=== PATIENT | male | born 1960 | race Caucasian/White ===

== ENCOUNTER 2022-06-19 09:07 | Emergency (ER) | payer BC ==
[2022-06-19 09:27] VITALS: BP 146/73
--- NOTE | 2022-06-19 10:42 | XRAY Report ---
PROCEDURE: Ribs w/PA Chest RT INDICATIONS: pain RIGHT chest TECHNIQUE: Two views of the right ribs were acquired, along with a single view chest. COMPARISON: None. FINDINGS: Surgical changes and devices: None. Bones and chest wall: No fractures or dislocations. No suspicious bony lesions. Overlying soft tis sues appear unremarkable. Lungs and pleura: No pleural effusions or pneumothorax. Lungs appear clear. Mediastinum: Mediastinal contours appear normal. Heart size is normal. IMPRESSION: No rib fracture or other abnormality to explain right sided chest pain. Reviewed by: Brock Cash MD on 06/19/2022 10:40 AM [facility] Approved by: Brock Cash MD on 06/19/2022 10:40 AM [facility] Station ID: [id number]
[2022-06-19] MEDS ORDERED: LIDOCAINE PATCH 5% TOP STA (12:04)
--- NOTE | 2022-06-19 12:15 | ED Physician Documentation ---
History of Present Illness - Stated complaint Stated Complaint: RIB PX, SOA - Chief complaint Chief Complaint: General - History obtained from History obtained from: Patient - History of Present Illness Pain level max: 7 Pain level now: 5 - Additonal information Additional information: Patient states that 2 days ago he was moving boxes in a house and developed right-sided rib pain after that. Worse with movement. Worse with palpation. Worse with deep breathing, coughing, sneezing. Nothing makes it better. Review of Systems Constitutional: denies: Fever, Chills Nose: denies: Rhinorrhea / runny nose Throat: denies: Sore throat Cardiac: denies: Chest pain / pressure Respiratory: denies: Cough GI: denies: Vomiting, Diarrhea Skin: denies: Rash Musculoskeletal: denies: Neck pain, Back pain Neurologic: denies: Headache PD PAST MEDICAL HISTORY - Past Medical History Past Medical History: Yes Cardiovascular: OR Neuro: CVA - Past Surgical History Past Surgical History: Yes - Present Medications Home Medications: Ambulatory Orders Medication Instructions Recorded Confirmed HYDROcod/ACETAM 5/325 [[place] 5/325] 1 - 2 ea PO Q6H PRN #14 tablet 06/19/22 Lidocaine Patch 5% [Lidoderm Patch] 1 patch TOP DAILY PRN #10 patch 06/19/22 - Allergies Allergies/Adverse Reactions: Allergies Allergy/AdvReac Type Severity Reaction Status Date / Time Iodinated Contrast Media Allergy Itching Verified 06/19/22 09:27 - Social History Does the pt smoke?: No Smoking Status: Never smoker Does the pt drink ETOH?: Yes Does the pt have substance abuse?: No - Immunizations Immunizations are current?: Yes PD ED PE NORMAL - Vitals Vital signs reviewed: Yes - General General: Alert and oriented X 3, No acute distress - HEENT HEENT: Moist mucous membranes - Neck Neck: Supple, no meningeal sign - Cardiac Cardiac: RRR - Respiratory Respiratory: No respiratory distress, Clear bilaterally - Abdomen Abdomen: Soft, Non tender, Non distended - Derm Derm: Warm and dry - Neuro Neuro: Alert and oriented X 3 - Psych Psych: Normal mood, Normal affect - Free text exam Free text exam: Tender to palpation over the right lower ribs, approximately rib 11. Anterior axillary line. No crepitus. No ecchymosis. Pinpoint tenderness. Results - Vitals Vitals: Vital Signs - 24 hr 06/19/22 09:20 Temperature 36.3 C L Heart Rate 63 Respiratory 16 Rate Blood Pressure 146/73 H O2 Saturation 97 Oxygen O2 Source Room air - Rads (name of study) Right rib x-rays Radiology: Final report received, See rad report PD Medical Decision Making - ED course Complexity details: reviewed results, considered differential, d/w patient ED course: No acute findings on x-rays of the right ribs. He is point tender. Possible no ndisplaced fracture. We will treat with pain medication and Lidoderm patches. No evidence of pneumonia, pneumothorax, hemothorax. Patient counseled regarding signs and symptoms for which I believe and urgent re-evaluation would be necessary. Patient with good understanding of and agreement to plan and is comfortable going home at this time This document was made in part using voice recognition software. While efforts are made to proofread this document, sound alike and grammatical errors may occur. Departure - Departure Disposition: 01 Home, Self Care Clinical Impression: Chest wall muscle strain Qualifiers: Encounter type: initial encounter Qualified Code(s): S29.011A - Strain of muscle and tendon of front wall of thorax, initial encounter Contusion of rib on right side Qualifiers: Encounter type: initial encounter Qualified Code(s): S20.211A - Contusion of right front wall of thorax, initial encounter Condition: Good Instructions: ED Contusion Vs Minor Fx Rib Follow-Up: Your,doctor in 1 week [Other] Prescriptions: Lidocaine Patch 5% [Lidoderm Patch] 1 patch TOP DAILY PRN #10 patch PRN Reason: pain HYDROcod/ACETAM 5/325 [[place] 5/325] 1 - 2 ea PO Q6H PRN #14 tablet PRN Reason: Pain Comments: Your prescriptions were sent to [email or web address] in [place]. Please follow-up with your doctor for further care. Please return if you worsen. Your rib x-rays do not show any abnormalities today. This should improve over the next 1 to 2 w eeks. The lidocaine patches can help to stabilize the area as well as help with the pain. I am prescribing a short course of narcotic pain medication for you. These are potentially dangerous and addictive medications that should be used carefully. These medications may constipate you. Take an [id number]-[id number] stool softener (docusate) twice daily with plenty of water while taking these medications. If you go 24 hours without a bowel movement, take [id number] miralax, per package instructions. Do not drink or drive while taking these medications. If you received narcotic or sedating medications while in the emergency department, do not drive for 24 hours. Store this medication in a safe, secure place and out of reach of children. It is a violation of federal law to give or sell this medication to another person or to use in a manner other than prescribed. The ED will not refill narcotic prescriptions, including prescriptions lost or stolen. To dispose of unwanted medications: 1. [facility] at [address] in [place] has a medication drop box. They accept prescription medications (in pill form) Sunday through Sunday 9:00 a.m. to 5:00 p.m. 2. [facility] [employer] [facility] accepts prescription medications (in pill form only) for disposal year round. Call for more information. 3. Contact the [facility] for the next [facility] sponsored prescription drug collection event. , [phone], or [phone];
== END 2022-06-19 12:27 | disposition home or self-care (01) ==
LOC: ED 09:07
DX: S29.011A Strain of muscle and tendon of front wall of thorax, initial encounter (principal); S20.211A Contusion of right front wall of thorax, initial encounter; X50.1XXA Overexertion from prolonged static or awkward postures, initial encounter; Y93.89 Activity, other specified; Y92.009 Unspecified place in unspecified non-institutional (private) residence as the place of occurrence of the external cause; I25.2 Old myocardial infarction; Z86.73 Personal history of transient ischemic attack (TIA), and cerebral infarction without residual deficits
CPT/HCPCS: 71101; 99283; A9270